=== PATIENT | male | born 1995 | race Caucasian/White ===

== ENCOUNTER 2021-05-29 01:07 | Emergency (ER) | payer OTHER ==
[2021-05-29] MEDS ORDERED: SULFAMETH/TRIMETH DS 800/160 MG TABLET PO STA (02:13)
--- NOTE | 2021-05-29 02:16 | ED Physician Documentation ---
History of Present Illness - Stated complaint Stated Complaint: OPEN WOUND IN BUTT - Chief complaint Chief Complaint: Wound - History obtained from History obtained from: Patient - History of Present Illness Timing: How many weeks ago (1) - Additonal information Additional information: 25-year-old male who reports having a pilonidal cyst that he had removed about 5 years ago has developed some bleeding from the inferior margin of the surgical site about 1 week ago. He indicates to me that 2 days ago he was able to squeeze the area hard and had some pus come out of there. He has had continued bleeding from there that is a pinkish color and not just blood. He does not have much in the way of pain fullness or mass. He has not had a problem with this area since his procedure with the exception of tight skin to the area. Review of Systems Constitutional: denies: Fever Respiratory: denies: Cough GI: denies: Vomiting PD PAST MEDICAL HISTORY - Past Medical History Past Medical History: No Cardiovascular: None Respiratory: None Neuro: None Endocrine/Autoimmune: None GI: None : None HEENT: None Psych: None Musculoskeletal: None Derm: None - Past Surgical History Past Surgical History: No - Present Medications Home Medications: Ambulatory Orders Medication Instructions Recorded Confirmed Sulfamethox/Trimeth 800/160 1 each PO BID #14 tablet 05/29/21 [Bactrim Ds] - Allergies Allergies/Adverse Reactions: Allergies Allergy/AdvReac Type Severity Reaction Status Date / Time No Known Drug Allergies Allergy Verified 05/29/21 01:22 - Social History Does the pt smoke?: Yes Smoking Status: Current every day smoker Does the pt drink ETOH?: Yes Does the pt have substance abuse?: No - Immunizations Immunizations are current?: Yes - POLST Patient has POLST: No PD ED PE NORMAL - Vitals Vital signs reviewed: Yes (hyertensive ) - General General: Alert and oriented X 3, No acute distress, Well developed/nourished - HEENT HEENT: Atraumatic, PERRL, EOMI - Respiratory Respiratory: No respiratory distress - Rectal Rectal: Other (In the gluteal cleft at the inferior margin of the surgical site from the pilonidal cyst there is an opening that is bleeding and the area is nontender without appreciable swelling. There is a tiny bit of blood that is expressed with pressure. The blood is thick.) - Derm Derm: Normal color, Warm and dry - Extremities Extremities: No deformity, No edema - Neuro Neuro: Alert and oriented X 3, cardiac/vascular sonographer 2-12 intact, No motor deficit, No sensory deficit, Normal speech Eye Opening: Spontaneous Motor: Obeys Commands Verbal: Oriented GCS Score: 15 - Psych Psych: Normal mood, Normal affect Results - Vitals Vitals: Vital Signs - 24 hr 05/29/21 01:19 Temperature 36.4 C L Heart Rate 76 Respiratory 15 Rate Blood Pressure 135/64 H O2 Saturation 98 Oxygen O2 Source Room air PD MEDICAL DECISION MAKING - ED course Complexity details: considered differential, d/w patient ED course: 25-year-old male with a draining pilonidal cyst that has recurred an area with surgery previously. He has persistent bleeding from the area but I suspect there is abscess in the area and this is continuing to drain we will place the patient on antibiotic And use a warm compress and follow-up with the surgeon for further evaluation. Departure - Departure Disposition: 01 Home, Self Care Clinical Impression: Pilonidal cyst with abscess Condition: Stable Instructions: ED Staph Infec Abx Tx Only Follow-Up: Ziggy Taylor MD [Provider Admit Priv/Credential] - Prescriptions: Sulfamethox/Trimeth 800/160 [Bactrim Ds] 1 each PO BID #14 tablet Comments: Ag, today it looks like your abscess is already draining and we will add some antibiotic in here to clear up the infection. Use a warm compress to the area to encourage drainage and blood flow to the area. Follow-up with the surgeon for further evaluation. I have prescribed an antibiotic to take twice per day and this has been E scribed to Karl Bowen in [place]
[2021-05-29 02:30] VITALS: BP 122/61
== END 2021-05-29 02:29 | disposition home or self-care (01) ==
LOC: ED 01:07
DX: L05.01 Pilonidal cyst with abscess (principal); F17.200 Nicotine dependence, unspecified, uncomplicated
CPT/HCPCS: 99282; A9270

== ENCOUNTER 2021-09-19 07:09 | Day surgery (SDC) | payer OTHER ==
[~2021-09-19 07:09] MED LIST: CEFAZOLIN SODIUM IN 0.9 % NACL 2 GM/50 ML BAG IV ONE; metroNIDAZOLE 500 MG/100 ML 500 MG/100 ML BAG ONE
[2021-09-19] MEDS ORDERED: LACTATED RINGERS 1,000 ML IV ONE ×3 (07:32→10:29)
[2021-09-19] MEDS ORDERED: NALOXONE 0.4 MG/ML VIAL IVP PRN (08:16)
[2021-09-19] MEDS ORDERED: ATROPINE ABBOJECT 1 MG/10 ML SYRINGE IVP PRN (08:16)
[2021-09-19] MEDS ORDERED: fentaNYL 100 MCG/2 ML VIAL IVP PRN (08:16)
[2021-09-19] MEDS ORDERED: METOCLOPRAMIDE 10 MG/2 ML VIAL IVP PRN (08:16)
[2021-09-19] MEDS ORDERED: ePHEDrine 50 MG/ML VIAL IVP PRN (08:16)
[2021-09-19] MEDS ORDERED: ONDANSETRON 4 MG/2 ML VIAL IVP PRN (08:16)
[2021-09-19] MEDS ORDERED: MORPHINE 2 MG/ML CARPUJECT IVP PRN (08:16)
[2021-09-19] MEDS ORDERED: HYDROmorphone 0.5 MG/0.5 ML SYRINGE IVP PRN (08:16)
--- NOTE | 2021-09-19 08:16 | ANESTHESIA ---
Pre-Anesthesia VS, & Labs - Diagnosis pilonidal cyst - Procedure pilonidal cyst excision Vital Signs: Temp Pulse Resp BP Pulse Ox 36.3 C L 69 20 140/79 H 96 09/19/21 07:27 09/19/21 07:27 09/19/21 07:27 09/19/21 07:27 09/19/21 07:27 Height: 5 ft 8 in Weight (kg): 86 kg Body Mass Index: 28.8 BMI Classification: Overweight - NPO >8 hours Home Medications and Allergies Home Medications: Ambulatory Orders No Known Home Medications 09/12/21 No Known Home Medications 09/12/21 Allergies/Adverse Reactions: Allergies Allergy/AdvReac Type Severity Reaction Status Date / Time No Known Drug Allergies Allergy Verified 05/29/21 01:22 Anes History & Medical History - Anesthetic History Anesthesia Complications: reports: No previous complications Family history of Anesthesia Complications: Denies Family history of Malignant Hyperthermia: Denies - Medical History Cardiovascular: reports: None Pulmonary: reports: Other (vapes frequently) Gastrointestinal: reports: None Urinary: reports: None Neuro: reports: None Musculoskeletal: reports: Chronic back pain, Other Endocrine/Autoimmune: reports: None Blood Disorders: reports: None Skin: reports: None Smoking Status: Current every day smoker - Surgical History General: reports: Other Exam General: Alert, Oriented x3, Cooperative Dental: WNL Mouth Openin Fingerbreadth Neck Mobility: Normal Mallampati classification: I Thyromental Distance: 4-6 cm Respiratory: Lungs clear Cardiovascular: Regular rate Plan Anesthesia Type: General Consent for Procedure(s) Verified and Reviewed: Yes Code Status: Attempt Resuscitation ASA classification: 2-Mild systemic disease Is this case an emergency?: No
--- NOTE | 2021-09-19 08:56 | HISTORY & PHYSICAL EXAMINATION ---
Chief Complaint - Chief Complaint Chief Complaint: pilonidal cyst History of Present Illness - History Obtained From Records Reviewed: yes History obtained from: pr Exam Limitations: none - History of Present Illness HPI Comment/Other: recurrent pilonidal cyst History - Past Medical History Cardiovascular: reports: None Respiratory: reports: Other (vapes frequently) Neuro: reports: None Endocrine/Autoimmune: reports: None GI: reports: None : reports: None HEENT: reports: None Psych: reports: None Musculoskeletal: reports: Chronic back pain, Other Derm: reports: None MRSA Hx?: No - Past Surgical History General: reports: Other - POLST Patient has POLST: No Meds/Allgy - Home Medications Home Medications: Ambulatory Orders Medication Instructions Recorded Confirmed No Known Home Medications 09/12/21 09/12/21 - Allergies Allergies/Adverse Reactions: Allergies Allergy/AdvReac Type Severity Reaction Status Date / Time No Known Drug Allergies Allergy Verified 05/29/21 01:22 Review of Systems - Other Findings Other Findings: 10 pt ros as above otherwise unremarkable Exam - Vital Signs Vital Signs: Vital Signs x48h Temp Pulse Resp BP Pulse Ox 09/19/21 07:27 36.3 C L 69 20 140/79 H 96 - Physical Exam General Appearance: positive: No acute distress, Alert Eyes Bilateral: positive: PERRL, EOMI ENT: positive: No signs of dehydration Neck: positive: No JVD Respiratory: positive: No respiratory distress, Breath sounds nml Cardiovascular: positive: Regular rate & rhythm Abdomen: positive: Non-tender Skin: positive: Other (recurrent pilonidal cyst present) Neurologic/Psychiatric: positive: Oriented x3 Conclusion/Plan - Problem List (1) Pilonidal cyst Conclusion/Plan: plan excision. parq held and consent obtained
[2021-09-19] MEDS ORDERED: BUPIVACAINE 0.25% PF 30 ML VIAL SUBQ ONE (08:57)
[2021-09-19] MEDS ORDERED: BUPIVACAINE 0.25% PF 10 ML VIAL ONE (08:59)
[2021-09-19] MEDS ORDERED: ROCURONIUM 50 MG/5 ML VIAL ONE (09:00)
[2021-09-19] MEDS ORDERED: LIDOCAINE-MPF 2% 5 ML VIAL ONE (09:00)
[2021-09-19] MEDS ORDERED: DEXAMETHASONE 4 MG/ML VIAL ONE (09:00)
[2021-09-19] MEDS ORDERED: LACTATED RINGERS 1,000 ML IV SCH (09:00)
[2021-09-19] MEDS ORDERED: LIDOCAINE 1% 50 ML MDV ONE (09:00)
[2021-09-19] MEDS ORDERED: PROPOFOL 200 MG/20 ML VIAL IVP ONE (09:00)
[2021-09-19] MEDS ORDERED: ONDANSETRON 4 MG/2 ML VIAL ONE (09:00)
[2021-09-19] MEDS ORDERED: fentaNYL 100 MCG/2 ML VIAL ONE ×2 (09:03→09:41)
[2021-09-19] MEDS ORDERED: MIDAZOLAM 2 MG/2 ML VIAL ONE (09:06)
[2021-09-19] MEDS ORDERED: SUGAMMADEX 200 MG/2 ML VIAL IVP ONE (09:59)
[2021-09-19] MEDS ORDERED: HYDROcod/ACETAM 5/325 MG TABLET PO PRN (10:10)
--- NOTE | 2021-09-19 10:10 | OPERATIVE REPORT ---
Operative Report - General Procedure Date: 09/19/21 Planned Procedure: pilonidal cyst excision Pre-Op Diagnosis: recurrent pilonidal cyst Procedure Performed: pilonidal cyst excision/ vicki procedure Post Op Diagnosis: recurrent pilonidal cyst - Procedure Note Primary Surgeon: radha kruse Anesthesia Technique: General ET tube, Local Pathology: benign not sent Estimated Blood Loss (mL): 20 Drain/Tube Type: Other (none) Indications: painful recurrent pilonidal cyst Complications: none - Other Other Information/Narrative: The patient was properly identified and brought to the operating room. General endotracheal anesthesia was induced and stretcher. The patient was carefully repositioned prone. Sequential compression devices were placed. Patient was prepped and draped in a sterile fashion and given preoperative antibiotics. Local anesthetic was given to the area. With an 11 blade small incisions were made around the sinus tracts. A left lateral incision was then made. Skin flap was then raised. The pilonidal cyst and chronic inflammatory tissue was then removed back to normal healthy tissue. Hemostasis was assured. Deep subcutaneous tissue was closed with interrupted 2-0 Vicryl suture. Buried interrupted subdermal 3-0 Vicryl sutures were then placed. Vertical mattress interrupted 3-0 nylon sutures were then placed. Dressing was applied. Patient was repositioned supine on the stretcher. Patient was then awakened and brought to recovery in good condition.
--- NOTE | 2021-09-19 11:15 | ANESTHESIA POST OP EVALUATION ---
Anesthesia Post Eval - Post Anesthesia Eval Vitals: Last Vital Signs Temp 36.0 C L 09/19/21 11:02 Pulse 65 09/19/21 11:02 Resp 16 09/19/21 11:02 BP 124/87 H 09/19/21 11:02 Pulse Ox 100 09/19/21 11:02 CV Function Including HR & BP: Stable Pain Control: Satisfactory Nausea & Vomiting: Negative Mental Status: Baseline Respiratory Status: Airway Patent Hydration Status: Satisfactory Anesthesia Complications: None
[2021-09-19 12:20] VITALS: BP 107/68
== END 2021-09-19 07:10 | disposition home or self-care (01) ==
LOC: SDS 07:09
PROVIDERS: ATTEND Surgery
PROC: 0JB90ZZ Excision of Buttock Subcutaneous Tissue and Fascia, Open Approach (ICD-10-PCS; principal; 2021-09-19 09:00)
DX: L05.91 Pilonidal cyst without abscess (principal); F17.290 Nicotine dependence, other tobacco product, uncomplicated
CPT/HCPCS: 11771; J0690; J7120

== ENCOUNTER 2022-04-23 14:49 | Outpatient (CLI) | payer OTHER | END 2022-04-23 14:50 | disposition home or self-care (01) | LOC: DI 14:49 | DX: R07.89 Other chest pain (principal) | CPT/HCPCS: 93306 ==

== ENCOUNTER 2022-04-29 13:47 | Outpatient (CLI) | payer OTHER ==
--- NOTE | 2022-04-29 14:39 | SLEEP CARE CONSULTATION ---
Information from patient questionnaire entered by Janna Maya. I have reviewed and concur with the information entered by Janna Maya. This document represents the service I personally performed and the decisions made by me, Gail Ontiveros ARNP. History of Present Illness Service Date and Time: 04/29/2022 1347 Reason for Visit: New patient Chief Complaint: reports: Unrefreshed sleep, Fatigue, Frequent awakenings at night Date of Onset: 4+YRS Usual bedtime: 1AM Time it takes to fall asleep: 30-90MIN Snores at night: Yes Observed to quit breathing while asleep: No Number of times waking at night: 3-4 Reasons for waking at night: reports: Other (UNKNOWN). denies: Choking, Snoring , Gasping for air Toss, Turn, or Twitch while sleeping: Yes Recalls having dreams: No Usually gets out of bed at: 9-10AM Feels refreshed in the morning: No Morning headache: Yes (3-4 days a week; RESOLVES WITH IN 1-2HRS) Sleepy or fatigued during the day: Yes Ever fallen asleep while driving: No Takes day naps: No Dreams during day naps: No Prior sleep studies: No Additional HPI information: I had the pleasure of seeing TEJAL MAI today regarding the possibility of him having a sleep disorder. His current complaints are unrefreshed sleep, fatigue and frequent night awakenings. He states he gets about 6-8 hours of sleep but will wake up almost hourly for unknown reasons. He states he does not wake up feeling rested most of the time. He states it takes 45 minutes-1 hour to fall asleep. He states he does not play on his phone or have any TV in his bedroom. His room is dark and he still has trouble falling asleep. He states he has snored in the past but it is not every night. He has not had anyone tell him he stops breathing at night. He wakes up about 2 times a month with sleep paralysis. He has woken up to him talking and moving in bed. He has restless feelings in his legs that prevent him from being able to lay down and fall asleep and he feels him memory is bad. - Parasomnia Symptoms Ever been unable to move upon waking from sleep: Yes (1-2 times a month) Walks in sleep: No Talks in sleep: Yes (woken up talking in sleep) Ever acted out dreams in sleep: Yes Ever felt weak in the knees when startled or emotional: No Bothered by creepy, crawly, restless sensations in legs: Yes (at night; hardeep when needs to go to sleep) Problems with memory or concentration: Yes (both; memory worse) Subjective Initial [place] Sleepiness Scale score: 6 (04/04/22) Past Medical History Past Medical History: reports: Other (lower back scoliosis) Social History The patient's occupation is a AM. Patient is Single and lives in . Have you smoked in the past 12 months: Yes Years of smokin Quit date: 2020 Alcohol use: No Caffeine use: Yes Caffeine amount and frequency: 1 12OZ DAILY Family History Family history of sleep disordered breathing: Yes Family Hx Sleep Apnea: Father: Snoring Allergies and Home Medications Known drug allergies: No Drug allergies reviewed: Yes Home medication list reviewed: Yes (no daily medications) Allergy and home medication list: Allergies No Known Drug Allergies Allergy (Verified 05/29/21 01:22) Review of Systems Weight gain over past 5 years: 40, intentional gain Cardiovascular: denies: high blood pressure Gastrointestinal: denies: heartburn Neurological: reports: headaches, head trauma (years ago, 16 yr old) Psychiatric: reports: Attention Deficit Hyperactivity, anxiety, depression Ear/Nose/Throat: denies: tonsillectomy Endocrine: denies: thyroid disease Musculoskeletal: reports: joint pain, back pain, joint swelling Physical Exam Vital signs obtained and entered by: JANNA Fairchild MA Blood Pressure: 122/78 (LEFT ARM) Cuff size: regular Heart Rate: 70 O2 Saturation: 96 Height: 5 ft 8 in Weight: 189 lb 6.4 oz Body Mass Index: 28.8 BMI Classification: Overweight Neck circumference: 15.25 Mouth and throat: narrow oropharynx Soft palate: long Hard palate: normal Uvula: normal Uvula visualization: 25% Mallampati Class III Tongue: enlarged in size with teeth agee on lateral edges Tonsils: small Neck: normal w/o lymphadenopathy or thyromegaly Heart: regular rate and rhythm Lungs: clear bilaterally Impression and Plan 1. Suspected Obstructive Sleep Apnea-Hypopnea Syndrome, as suggested by a history of irregular snoring, morning headache, frequent awakening during the night, unrefreshed sleep, cognitive impairment, and excessive daytime sleepiness. Narrow oropharynx and obesity are common predisposing factors for obstructive sleep apnea-hypopnea syndrome. I recommend proceeding to polysomnography to confirm the diagnosis and to assess severity. If the patient has significant sleep disordered breathing, a manual CPAP titration study will also be performed to find the optimal treatment pressure. I informed the patient of what the sleep studies involve and after some discussion, obtained agreement to proceed. The pathophysiology of obstructive sleep apnea-hypopnea syndrome was discussed with the patient and health risks of cardiovascular and cerebrovascular disease if not treated. Risks of drowsy driving discussed in detail and patient advised to avoid long distance driving and to cable puller at the first sign of drowsiness. Patient agreed to plan. * Schedule polysomnography * Avoid long distance driving or driving when feeling sleepy. * Avoid alcohol, sedative and muscle relaxant around bedtime. * Attempt to lose weight. * Review instructions provided by trained office staff on how to prepare for the sleep study. * Return for follow-up after sleep study completed. Counseling Topics: Weight loss health impact Visit Type: In Office Time Spent with Patient (minutes): 30 Provider Statement: I spent 100% of the Face to Face Visit with the patient with greater than 50% spent counseling the patient and coordination of care.
[2022-04-29 14:40] VITALS: BP 122/78
== END 2022-04-29 13:48 | disposition home or self-care (01) ==
LOC: SC 13:47
PROVIDERS: ATTEND Nurse Practitioner Family
DX: R06.83 Snoring (principal); G47.8 Other sleep disorders; R53.83 Other fatigue; Z87.891 Personal history of nicotine dependence; E66.3 Overweight; Z68.28 Body mass index [BMI] 28.0-28.9, adult
CPT/HCPCS: 99203; 99212

== ENCOUNTER 2022-06-05 20:58 | Outpatient (CLI) | payer OTHER | END 2022-06-05 20:59 | disposition home or self-care (01) | LOC: SC 20:58 | PROVIDERS: ATTEND Nurse Practitioner Family | DX: R06.83 Snoring (principal); G47.8 Other sleep disorders; R53.83 Other fatigue | CPT/HCPCS: 95810 ==

== ENCOUNTER 2022-06-10 15:32 | Outpatient (CLI) | payer OTHER ==
--- NOTE | 2022-06-10 15:49 | SLEEP CARE CONSULTATION ---
Information from patient questionnaire entered by Janna Maya. I have reviewed and concur with the information entered by Janna Maya. This document represents the service I personally performed and the decisions made by , Gail Ontiveros ARNP. History of Present Illness Service Date and Time: 06/10/20221531 Initial [place] Sleepiness Scale score: 6 (04/04/22) Current [place] Sleepiness Scale score: 1 (06/10/22) Additional HPI information: TEJAL MAI returns for follow up and results of the recently performed polysomnography. The patient was informed of the following findings: No significant sleep disordered breathing with an average AHI of 0.2 and lucinda oxygen saturation of 91%. I explained the pathophysiology behind obstructive sleep apnea. Patient does not have sleep apnea and was advised how weight gain could increase the risk of developing sleep apnea in the future. I strongly encouraged the patient to lose weight. Patient has light snoring. Snoring can be reduced by weight loss. Weight loss is best achieved with diet consult. Patient instructed to contact PCP for referral. Snoring can also be treated with an oral appliance from a dentist. Advised to check insurance coverage. In addition, an ENT evaluation can be do to see if other treatment is indicated. Patient does not drink alcohol. Patient was cautioned about risks of drowsy driving until sleepiness symptoms resolve. Patient denies drowsy driving. Sleep Study - Results Type of Sleep Study: Polysomnography (COMPLETED 06/05/22) Prior sleep studies: No Polysomnography/Home Sleep Study results: IMPRESSION: The quality of the study is good. The patient had normal sleep efficiency. The sleep architecture was relatively normal considering the first-night effect. Respiratory monitoring showed no significant sleep disordered breathing (AHI = 0.2) or hypoxia (lucinda oxygen saturation of 91%). The slept mostly supine (supine AHI = 0.2; non-supine = 0.00). Snore was very light in intensity. There was no significant periodic leg movement of sleep. Cardiac rhythm was normal sinus rhythm without significant arrhythmia. No abnormal behavior (parasomnia) observed during the night. Allergies and Home Medications Known drug allergies: No Drug allergies reviewed: Yes Home medication list reviewed: Yes (no changes) Allergy and home medication list: Allergies No Known Drug Allergies Allergy Review of Systems Review of systems same as previous: Yes (no changes) Physical Exam Vital signs obtained and entered by: JANNA Fairchild MA Blood Pressure: 108/70 (LEFT ARM) Cuff size: regular Heart Rate: 79 O2 Saturation: 97 Height: 5 ft 8 in Weight: 183 lb 9.6 oz Body Mass Index: 27.9 BMI Classification: Overweight Impression and Plan 1. Snoring but no significant sleep disordered breathing. Patient advised that often weight loss will reduce snoring as well as apnea risk. An oral appliance can also be used for snoring. This would require a dental consultation. Patient cautioned not to use other online appliances as can cause bite issues. A list of accredited dentists in [facility] and one local dentist who makes oral appliances is available in office as needed. Patient is advised to check if insurance will [place]. An ENT consult can also be helpful to determine if any other treatment is an option. * Attempt to lose weight * Avoid alcohol consumption near bedtime * The patient is cautioned about driving until sleepiness is completely resolved. * Return as needed for follow up. Counseling Topics: Weight loss health impact Visit Type: In Office Time Spent with Patient (minutes): 10 Provider Statement: I spent 100% of the Face to Face Visit with the patient with greater than 50% spent counseling the patient and coordination of care.
[2022-06-10 16:05] VITALS: BP 108/70
== END 2022-06-10 15:33 | disposition home or self-care (01) ==
LOC: SC 15:32
PROVIDERS: ATTEND Nurse Practitioner Family
DX: R06.83 Snoring (principal); Z68.27 Body mass index [BMI] 27.0-27.9, adult; E66.3 Overweight
CPT/HCPCS: 99212